=== PATIENT | male | born 1995 | race Caucasian/White ===

== ENCOUNTER 2017-10-06 22:32 | Emergency (ER) | payer OTHER ==
[2017-10-06] MEDS ORDERED: NS 1,000 ML IV ONE (22:49)
[2017-10-06 23:14] LABS: PLATELET COUNT 218 10^3/uL (150-400)
--- NOTE | 2017-10-06 23:34 | EDPHY ---
H & P Stated Complaint: left lower abd pain x3 days, no N/V/D/F - Personal History Current Tetanus Diphtheria and Acellular Pertussis (TDAP): Yes - Medical/Surgical History Hx Asthma: No Hx Chronic Respiratory Disease: No Hx Diabetes: No Hx Cardiac Disease: No Hx Renal Disease: No Hx Cirrhosis: No Hx Alcoholism: No Hx HIV/AIDS: No Hx Splenectomy or Spleen Trauma: No Other PMH: depression, ADD - Social History Smoking Status: Never smoked Time Seen by Provider: 10/06/17 22:45 HPI/ROS: Chief complaint: Abdominal pain History of present illness: This is a 22-year-old male who presents to the emergency department for evaluation of abdominal pain. Patient reports the onset of symptoms approximately 3 days ago. He reports pain primarily in the left, lower aspect of the abdomen. He describes a soreness. He denies precipitating factors. He denies alleviating or aggravating factors. He denies other associated signs or symptoms including no fevers, no nausea, vomiting, diarrhea or constipation. No blood in the stools. No urinary symptoms. No discomfort in the penis or testicles. Review of systems: A 10 point review of systems was obtained and other than described above was negative ([facility]) - Physical Exam Exam: General Appearance: Alert, no distress. Eyes: Pupils equal and round no pallor or injection. ENT, Mouth: Mucous membranes moist. Respiratory: There are no retractions, lungs are clear to auscultation. Cardiovascular: Regular rate and rhythm. Gastrointestinal: Bowel sounds are normal. The abdomen is soft, nontender, nondistended. No guarding or other peritoneal signs. Neurological: Alert and oriented x4. Strength and sensation intact and symmetrical. Skin: Warm and dry, no rashes. Musculoskeletal: Neck is supple non tender. Extremities are symmetrical, full range of motion. Psychiatric: Patient is oriented X 3, there is no agitation. ([facility]) Constitutional: Initial Vital Signs Temperature (C) 36.8 C 10/06/17 22:35 Heart Rate 78 10/06/17 22:35 Respiratory Rate 16 10/06/17 22:35 Blood Pressure 130/78 H 10/06/17 22:35 O2 Sat (%) 97 10/06/17 22:35 O2 Delivery Mode Room Air Allergies/Adverse Reactions: No Known Allergies Allergy (Unverified 10/06/17 22:34) Home Medications: Medication Instructions Recorded Sertraline HCl 10/06/17 Vyvanse 10/06/17 Medical Decision Making ED Course/Re-evaluation: Patient seen under the supervision of my secondary supervising physician Dr. Ama Joe. Patient presents for left lower abdominal pain. He is nontoxic. Vital signs are stable. Blood studies are unremarkable. I have performed serial abdominal exams in the emergency room both on presentation and just prior to discharge and they remain benign. I have discussed pursuing a CT scan to further evaluate his abdominal pain, he has declined. He is asked to follow up with a primary care doctor tomorrow for recheck. Home care was discussed. He was given strict return precautions. He has voiced understanding and agreement with plan. ([facility]) PHYSICIAN DOCUMENTATION: The patient was evaluated and managed by the Physician Truck Bench Mechanic. My co- signature indicates that I have reviewed this chart and I agree with the findings and plan of care as documented. I am the secondary supervising physician. (Ama Joe) Differential Diagnosis: Included but not limited to proctitis, colitis, diverticulitis, urinary tract disease, constipation ([facility]) - Data Points Laboratory Results: Laboratory Results 10/06/17 22:55 10/06/17 22:55 10/06/17 10/06/17 10/06/17 22:55 22:55 22:10 WBC 7.75 10^3/uL 10^3/uL (3.80-9.50) RBC 4.99 10^6/uL 10^6/uL (4.40-6.38) Hgb 14.2 g/dL g/dL (13.7-17.5) Hct 43.5 % % (40.0-51.0) MCV 87.2 fL fL (81.5-99.8) MCH 28.5 pg pg (27.9-34.1) MCHC 32.6 g/dL g/dL (32.4-36.7) RDW 14.1 % % (11.5-15.2) Plt Count 218 10^3/uL 10^3/uL (150-400) MPV 10.5 fL fL (8.7-11.7) Neut % (Auto) 61.1 % % (39.3-74.2) Lymph % (Auto) 28.3 % % (15.0-45.0) [place] % (Auto) 8.6 % % (4.5-13.0) Eos % (Auto) 1.2 % % (0.6-7.6) Baso % (Auto) 0.5 % % (0.3-1.7) Nucleat RBC Rel Count 0.0 % % (0.0-0.2) Absolute Neuts (auto) 4.74 10^3/uL 10^3/uL (1.70-6.50) Absolute Lymphs (auto) 2.19 10^3/uL 10^3/uL (1.00-3.00) Absolute Monos (auto) 0.67 10^3/uL 10^3/uL (0.30-0.80) Absolute Eos (auto) 0.09 10^3/uL 10^3/uL (0.03-0.40) Absolute Basos (auto) 0.04 10^3/uL 10^3/uL (0.02-0.10) Absolute Nucleated RBC 0.00 10^3/uL 10^3/uL (0-0.01) Immature Gran % 0.3 % % (0.0-1.1) Immature Gran # 0.02 10^3/uL 10^3/uL (0.00-0.10) Sodium 140 mEq/L mEq/L (135-145) Potassium 4.1 mEq/L mEq/L (3.5-5.2) Chloride 102 mEq/L mEq/L (97-110) Carbon Dioxide 22 mEq/l mEq/l (22-31) Anion Gap 16 mEq/L mEq/L (8-16) BUN 17 mg/dL mg/dL (7-23) Creatinine 0.8 mg/dL mg/dL (0.7-1.3) Estimated GFR > 60 Glucose 96 mg/dL mg/dL (70-100) Calcium 9.0 mg/dL mg/dL (8.5-10.4) Total Bilirubin 0.5 mg/dL mg/dL (0.1-1.4) Conjugated Bilirubin 0.4 mg/dL mg/dL (0.0-0.5) Unconjugated Bilirubin 0.1 mg/dL mg/dL (0.0-1.1) AST 24 IU/L IU/L (17-59) ALT 48 IU/L IU/L (21-72) Alkaline Phosphatase 75 IU/L IU/L (38-126) Total Protein 7.6 g/dL g/dL (6.3-8.2) Albumin 4.3 g/dL g/dL (3.5-5.0) Lipase 49 IU/L IU/L (23-300) Urine Color YELLOW Urine Appearance CLEAR Urine pH 5.0 (5.0-7.5) Ur Specific [place] 1.019 (1.002-1.030) Urine Protein NEGATIVE (NEGATIVE) Urine Ketones NEGATIVE (NEGATIVE) Urine Blood NEGATIVE (NEGATIVE) Urine Nitrate NEGATIVE (NEGATIVE) Urine Bilirubin NEGATIVE (NEGATIVE) Urine Urobilinogen NEGATIVE EU EU (0.2-1.0) Ur Leukocyte Esterase NEGATIVE (NEGATIVE) Urine RBC 1-3 /hpf /hpf (0-3) Urine WBC 1-3 /hpf /hpf (0-3) Ur Epithelial Cells TRACE /lpf /lpf (NONE-1+) Urine Glucose NEGATIVE (NEGATIVE) Medications Given: Discontinued Medications Sodium Chloride (Ns) 1,000 mls @ 0 mls/hr IV EDNOW ONE; Wide Open PRN Reason: Protocol Stop: 10/06/17 22:50 Last Admin: 10/06/17 22:57 Dose: 1,000 mls Departure - Departure Disposition: Home, Routine, Self-Care Clinical Impression: Abdominal pain Condition: Good Instructions: Acute Abdominal Pain (ED) Additional Instructions: Follow-up with a primary care doctor tomorrow for recheck without fail If symptoms worsen or new symptoms develop return immediately to the emergency room for recheck Referrals: NONE *PRIMARY CARE P,. [Primary Care Provider] - As per Instructions [facility],. [Clinic] - As per Instructions
[2017-10-06 23:43] VITALS: BP 126/55
== END 2017-10-06 23:43 | disposition home or self-care (01) ==
DX: R10.9 Unspecified abdominal pain (principal); E86.9 Volume depletion, unspecified